=== PATIENT | female | born 1955 | race Caucasian/White ===

== ENCOUNTER 2019-10-20 19:25 | Emergency (ER) | payer OTHER, MEDICAID ==
[~2019-10-20] VITALS: Ht 167.6 cm; Wt 88.9 kg
[2019-10-20 19:50] VITALS: BP 114/77
[2019-10-20 21:43] LABS: Basophils # (auto) 0 uL; Basophils % (auto) 0.7 % (0.0-2.0); Eosinophils # (auto) 0.1 uL; Eosinophils % (auto) 1.4 % (0.0-7.0); Hematocrit 35.5 % (36.0-46.0); Hemoglobin 12.9 g/dL (12.2-16.2); Lymphocytes # (auto) 0.6 uL; Lymphocytes % (auto) 8.2 % (10.0-50.0); Mean Corpuscular Hemoglobin 30.5 pg (28.0-32.0); Mean Corpuscular Hgb Conc. 36.5 g/dL (32.0-36.0); Mean Corpuscular Volume 83.6 fL (80.0-100.0); Monocytes # (auto) 0.7 uL; Monocytes % (auto) 9.1 % (0.0-12.0); Neutrophils % (auto) 80.6 % (37.0-80.0); Nucleated Red Blood Cells % 0.1 %; Platelet Count (auto) 198 10^3/uL (140-450); Red Blood Cells 4.24 10^6/uL (4.0-5.20); Red Cell Distribution Width 17.7 % (11.8-14.3); White Blood Cell 7.4 10^3/uL (4.4-10.8)
[2019-10-20 21:59] LABS: Albumin 4.7 g/dL (3.4-5.0); Anion Gap 8 (5-15); Blood Urea Nitrogen 23 mg/dL (7-18); Calcium 9.7 mg/dL (8.5-10.1); Carbon Dioxide 27 mmol/L (21-32); Chloride 98 mmol/L (98-107); Glucose 107 mg/dL (74-106); Potassium 3.5 mmol/L (3.5-5.1); Sodium 133 mmol/L (136-145)
[2019-10-20 22:05] LABS: Alanine Aminotransferase 29 U/L (13-56); Alkaline Phosphatase 85 U/L (45-117); Aspartate Aminotransferase 23 U/L (15-37); BUN/Creatinine Ratio 24.2; GFR African American 76 mL/min; GFR Non-African American 63 mL/min; Total Protein 7.7 g/dL (6.4-8.2)
== END 2019-10-21 00:03 | disposition left against medical advice (07) ==
LOC: ER 19:31
DX: R07.89 Other chest pain (principal); Z53.21 Procedure and treatment not carried out due to patient leaving prior to being seen by health care provider
CPT/HCPCS: 36415; 71046; 80053; 84484; 85025; 93005

== ENCOUNTER 2023-09-28 07:41 | Inpatient (IN) | payer OTHER, MEDICAID ==
[~2023-09-28] VITALS: Ht 167.6 cm; Wt 96.0 kg
[2023-09-28 08:15] LABS: Basophils # (auto) 0 10 ^3/uL (0-0.2); Basophils % (auto) 0.2 % (0.0-2.0); Eosinophils # (auto) 0 10 ^3/uL (0-0.8); Eosinophils % (auto) 0.6 % (0.0-7.0); Hematocrit 36.6 % (36.0-46.0); Hemoglobin 12.7 g/dL (12.2-16.2); Lymphocytes # (auto) 0.7 10 ^3/uL (0.4-5.4); Lymphocytes % (auto) 8.7 % (10.0-50.0); Mean Corpuscular Hemoglobin 30.1 pg (28.0-32.0); Mean Corpuscular Hgb Conc. 34.7 g/dL (32.0-36.0); Mean Corpuscular Volume 86.8 fL (80.0-100.0); Monocytes # (auto) 0.3 10 ^3/uL (0-1.3); Monocytes % (auto) 4.1 % (0.0-12.0); Neutrophils # (auto) 6.7 10 ^3/uL (1.6-8.6); Neutrophils % (auto) 86.4 % (37.0-80.0); Nucleated Red Blood Cells % 0.1 %; Red Blood Cells 4.22 10^6/uL (4.0-5.20); Red Cell Distribution Width 16.3 % (11.8-14.3); White Blood Cell 7.7 10^3/uL (4.4-10.8)
[2023-09-28 08:23] LABS: INR 1.05 (0.9-1.15); Partial Thromboplastin Time 29.1 SEC (24.5-34.5)
[2023-09-28 08:35] LABS: Alanine Aminotransferase 20 U/L (7-40); Albumin 4.3 g/dL (3.2-4.8); Alkaline Phosphatase 84 U/L (46-116); Anion Gap 11 (5-15); Aspartate Aminotransferase 25 U/L (13-40); Blood Urea Nitrogen 15 mg/dL (9-23); Calcium 9.6 mg/dL (8.7-10.4); Carbon Dioxide 23 mmol/L (20-30); Chloride 107 mmol/L (98-107); Glucose 111 mg/dL (74-106); Magnesium 1.8 mg/dL (1.6-2.6); Sodium 141 mmol/L (136-145)
[2023-09-28 08:36] LABS: Total Protein 6.7 g/dL (5.7-8.2)
[2023-09-28 08:53] LABS: Bilirubin, Total 1.8 mg/dL (0.2-1.0)
[2023-09-28] MEDS ORDERED: FUROSEMIDE 40 MG/4 ML VIAL IV ONE (13:30)
[2023-09-28] MEDS ORDERED: DexAMETHasone SOD PHOS 10MG/1ML VIAL INJ IV ONE (13:30)
[2023-09-28] MEDS ORDERED: HYDROcodone-ACET 5/325MG TAB PO PRN (14:15)
[2023-09-28] MEDS ORDERED: NITROGLYCERIN 0.4 MG SL TAB SL PRN (14:15)
[2023-09-28] MEDS ORDERED: DOCUSATE SOD 100 MG CAP PO PRN (14:15)
[2023-09-28] MEDS ORDERED: MORPHINE SULFATE INJ 2 MG/ml SYRG IV PRN (14:15)
[2023-09-28] MEDS ORDERED: ONDANSETRON HCL 4 MG/2 ML VIAL IV PRN (14:15)
[2023-09-28] MEDS ORDERED: PROMETHAZINE HCL 6.25 MG/5 ML ORAL SYRUP PO PRN (15:15)
[2023-09-28] MEDS ORDERED: ATOR40TA52 PO (15:25)
[2023-09-28] MEDS ORDERED: BACL10TA PO (15:25)
[2023-09-28] MEDS ORDERED: LOS25T PO (15:25)
[2023-09-28] MEDS ORDERED: ACETAMINOPHEN 500 MG TAB PO ONE (15:45)
[2023-09-28 18:00] VITALS: PULSE 86; RESP 18; O2SAT 98
[2023-09-28] MEDS: IPRATROPIUM BROM 0.5 MG/2.5ML INH SOL NEB SCH (18:00)
[2023-09-28] MEDS: LEVALBUTEROL HCL 1.25 MG/3 ML NEB NEB SCH (18:00)
[2023-09-28 18:10] VITALS: PULSE 88; RESP 18; O2SAT 100
[2023-09-28 18:23] LABS: COVID19 ANTIGEN SOFIA FIA NEGATIVE (NEGATIVE)
[2023-09-28 18:24] LABS: Rapid Influenza A Negative (Negative); Rapid Influenza B Negative (Negative)
[2023-09-28] MEDS: methylPREDNISolone SOD SUCC 40 MG/ML VL IV SCH (23:41)
[2023-09-29] VITALS (18 sets, daily range): BP systolic 140–190; BP diastolic 68–93; PULSE 66–122; RESP 16–22; TEMP 97.5–98.4; O2SAT 94–100
[2023-09-29] MEDS: LEVALBUTEROL HCL 1.25 MG/3 ML NEB NEB SCH ×5 (00:57→23:03)
[2023-09-29] MEDS: hydrALAZINE HCL 20 MG/ML VL IV PRN ×3 (01:13→19:15)
[2023-09-29] MEDS: ACETAMINOPHEN 325 MG TAB PO PRN ×4 (01:14→19:08)
[2023-09-29] MEDS ORDERED: ALBUTEROL SULF 2.5 MG/0.5ML(0.5%) NEB SOLN NEB PRN (01:30)
[2023-09-29] MEDS ORDERED: IPRATROPIUM BROM 0.5 MG/2.5ML INH SOL NEB PRN (01:30)
[2023-09-29] MEDS: methylPREDNISolone SOD SUCC 40 MG/ML VL IV SCH ×3 (05:19→20:59)
[2023-09-29] MEDS: IPRATROPIUM BROM 0.5 MG/2.5ML INH SOL NEB SCH ×3 (06:13→22:53)
[2023-09-29 06:46] LABS: Basophils # (auto) 0 10 ^3/uL (0-0.2); Basophils % (auto) 0.1 % (0.0-2.0); Eosinophils # (auto) 0 10 ^3/uL (0-0.8); Hematocrit 32.3 % (36.0-46.0); Lymphocytes # (auto) 0.2 10 ^3/uL (0.4-5.4); Lymphocytes % (auto) 5.6 % (10.0-50.0); Mean Corpuscular Hemoglobin 29.3 pg (28.0-32.0); Mean Corpuscular Volume 86.3 fL (80.0-100.0); Monocytes # (auto) 0 10 ^3/uL (0-1.3); Monocytes % (auto) 1.3 % (0.0-12.0); Neutrophils # (auto) 3.5 10 ^3/uL (1.6-8.6); Nucleated Red Blood Cells % 0.1 %; Red Blood Cells 3.74 10^6/uL (4.0-5.20); Red Cell Distribution Width 15.6 % (11.8-14.3); White Blood Cell 3.7 10^3/uL (4.4-10.8)
[2023-09-29] MEDS: BREO ELIPTA PO SCH (07:00)
[2023-09-29] MEDS: SPIRIVA 1.25 MCG PO SCH (07:00)
[2023-09-29 07:01] LABS: Alanine Aminotransferase 12 U/L (7-40); Albumin 4.1 g/dL (3.2-4.8); Alkaline Phosphatase 70 U/L (46-116); Anion Gap 12 (5-15); Aspartate Aminotransferase 22 U/L (13-40); BUN/Creatinine Ratio 18.7 (10.0-20.0); Bilirubin, Total 1.4 mg/dL (0.2-1.0); Blood Urea Nitrogen 14 mg/dL (9-23); Calcium 9.2 mg/dL (8.7-10.4); Carbon Dioxide 20 mmol/L (20-30); Chloride 106 mmol/L (98-107); Glucose 172 mg/dL (74-106); Potassium 3.7 mmol/L (3.5-5.1); Sodium 138 mmol/L (136-145); Total Protein 6.7 g/dL (5.7-8.2)
[2023-09-29 09:13] LABS: Hepatitis B Surface Antigen Negative (Negative)
[2023-09-29 09:35] LABS: Hepatitis C Antibody Negative (Negative)
[2023-09-29] MEDS: PANTOPRAZOLE 40 MG TAB PO SCH (09:38)
[2023-09-29] MEDS: levoFLOXacin 750MG 150 ML IV SCH (09:39)
[2023-09-29] MEDS ORDERED: FUROSEMIDE 20 MG/2 ML VIAL IV SCH (10:00)
[2023-09-29] MEDS ORDERED: ENOXAPARIN SOD 40 MG/0.4 ML SYRINGE SC SCH (10:00)
[2023-09-29] MEDS ORDERED: ASPirin 81 mg TAB PO SCH (10:00)
[2023-09-29] MEDS ORDERED: LOSARTAN POTASSIUM 25 MG TAB PO SCH (10:00)
[2023-09-29] MEDS: PROMETHAZINE HCL 25 MG/ML 1ML IV PRN ×2 (11:23→20:59)
[2023-09-29] MEDS: LORazepam 2MG/ML-1ML VIAL IV PRN ×2 (12:38→23:34)
[2023-09-29] MEDS ORDERED: DOXY100C4 PO (15:45)
[2023-09-29] MEDS ORDERED: AUG875T PO (15:45)
[2023-09-29] MEDS ORDERED: PROM25TA10 PO (16:05)
[2023-09-29] MEDS ORDERED: BUDE0.253 INH (16:05)
[2023-09-29] MEDS ORDERED: FLUT1INH6 INH (16:05)
[2023-09-29] MEDS ORDERED: PRED10TA PO (16:05)
[2023-09-29] MEDS ORDERED: FAMO-12 PO (16:09)
[2023-09-29] MEDS: FUROSEMIDE 20 MG/2 ML VIAL IV SCH (19:09)
[2023-09-29] MEDS: BACLOFEN 10 MG TAB PO SCH (20:58)
[2023-09-29] MEDS: ATORVASTATIN 20 MG TAB PO SCH (20:58)
[2023-09-30] VITALS (14 sets, daily range): BP systolic 131–154; BP diastolic 69–80; PULSE 80–102; RESP 14–20; TEMP 97.5–98.4; O2SAT 93–100
[2023-09-30] MEDS: ACETAMINOPHEN 325 MG TAB PO PRN ×2 (03:51→14:06)
[2023-09-30] MEDS: FUROSEMIDE 20 MG/2 ML VIAL IV SCH ×2 (05:04→18:16)
[2023-09-30] MEDS: methylPREDNISolone SOD SUCC 40 MG/ML VL IV SCH ×2 (05:04→18:15)
[2023-09-30 05:57] LABS: Basophils # (auto) 0 10 ^3/uL (0-0.2); Basophils % (auto) 0.3 % (0.0-2.0); Eosinophils # (auto) 0 10 ^3/uL (0-0.8); Eosinophils % (auto) 0.4 % (0.0-7.0); Hematocrit 32.7 % (36.0-46.0); Hemoglobin 11.6 g/dL (12.2-16.2); Lymphocytes # (auto) 0.2 10 ^3/uL (0.4-5.4); Lymphocytes % (auto) 2.3 % (10.0-50.0); Mean Corpuscular Hemoglobin 31.4 pg (28.0-32.0); Mean Corpuscular Hgb Conc. 35.7 g/dL (32.0-36.0); Mean Corpuscular Volume 87.9 fL (80.0-100.0); Monocytes # (auto) 0.4 10 ^3/uL (0-1.3); Monocytes % (auto) 3.7 % (0.0-12.0); Neutrophils % (auto) 93.3 % (37.0-80.0); Red Blood Cells 3.72 10^6/uL (4.0-5.20); Red Cell Distribution Width 16.2 % (11.8-14.3); White Blood Cell 10.7 10^3/uL (4.4-10.8)
[2023-09-30] MEDS: LEVALBUTEROL HCL 1.25 MG/3 ML NEB NEB SCH ×3 (06:00→17:42)
[2023-09-30] MEDS: IPRATROPIUM BROM 0.5 MG/2.5ML INH SOL NEB SCH ×3 (06:00→17:42)
[2023-09-30 06:19] LABS: Alanine Aminotransferase 11 U/L (7-40); Alkaline Phosphatase 63 U/L (46-116); Anion Gap 11 (5-15); Aspartate Aminotransferase 22 U/L (13-40); Bilirubin, Total 0.9 mg/dL (0.2-1.0); Calcium 9.7 mg/dL (8.5-10.1); Carbon Dioxide 25 mmol/L (20-30); Chloride 104 mmol/L (98-107); Glucose 145 mg/dL (74-106); Potassium 3.5 mmol/L (3.5-5.1); Sodium 140 mmol/L (136-145); Total Protein 6.5 g/dL (5.7-8.2)
[2023-09-30 06:39] LABS: Blood Urea Nitrogen 21 mg/dL (9-23)
[2023-09-30] MEDS: SPIRIVA 1.25 MCG PO SCH (07:00)
[2023-09-30] MEDS: BREO ELIPTA PO SCH (07:00)
[2023-09-30] MEDS: PROMETHAZINE HCL 25 MG/ML 1ML IV PRN ×2 (07:08→19:32)
[2023-09-30 07:24] LABS: BUN/Creatinine Ratio 20.8 (10.0-20.0)
[2023-09-30] MEDS: LOSARTAN POTASSIUM 50 MG TAB PO SCH (10:00)
[2023-09-30] MEDS: LORazepam 2MG/ML-1ML VIAL IV PRN ×2 (10:07→22:39)
[2023-09-30] MEDS: PANTOPRAZOLE 40 MG TAB PO SCH (10:07)
[2023-09-30] MEDS: levoFLOXacin 750MG 150 ML IV SCH (10:10)
[2023-09-30] MEDS ORDERED: IBUPROFEN 600 MG TAB PO ONE (16:30)
[2023-09-30] MEDS: BACLOFEN 10 MG TAB PO SCH (21:29)
[2023-09-30] MEDS: ATORVASTATIN 20 MG TAB PO SCH (21:29)
[2023-10-01] VITALS (11 sets, daily range): BP systolic 149–150; BP diastolic 82–83; PULSE 62–94; RESP 14–18; TEMP 36.6; O2SAT 93–100
[2023-10-01] MEDS: LEVALBUTEROL HCL 1.25 MG/3 ML NEB NEB SCH ×3 (01:18→12:06)
[2023-10-01] MEDS: FUROSEMIDE 20 MG/2 ML VIAL IV SCH ×2 (05:06→18:00)
[2023-10-01] MEDS: methylPREDNISolone SOD SUCC 40 MG/ML VL IV SCH ×2 (05:06→18:00)
[2023-10-01] MEDS: BREO ELIPTA PO SCH (06:06)
[2023-10-01] MEDS: SPIRIVA 1.25 MCG PO SCH (06:06)
[2023-10-01] MEDS: PROMETHAZINE HCL 25 MG/ML 1ML IV PRN (06:31)
[2023-10-01 06:37] LABS: Basophils # (auto) 0 10 ^3/uL (0-0.2); Basophils % (auto) 0.1 % (0.0-2.0); Eosinophils # (auto) 0 10 ^3/uL (0-0.8); Hematocrit 33.1 % (36.0-46.0); Hemoglobin 11.2 g/dL (12.2-16.2); Lymphocytes # (auto) 0.3 10 ^3/uL (0.4-5.4); Lymphocytes % (auto) 3.3 % (10.0-50.0); Mean Corpuscular Hemoglobin 30.6 pg (28.0-32.0); Mean Corpuscular Volume 90.1 fL (80.0-100.0); Monocytes # (auto) 0.5 10 ^3/uL (0-1.3); Monocytes % (auto) 5.9 % (0.0-12.0); Neutrophils # (auto) 7.3 10 ^3/uL (1.6-8.6); Neutrophils % (auto) 90.7 % (37.0-80.0); Red Blood Cells 3.67 10^6/uL (4.0-5.20); Red Cell Distribution Width 16.4 % (11.8-14.3); White Blood Cell 8.1 10^3/uL (4.4-10.8)
[2023-10-01 06:44] LABS: Chloride 105 mmol/L (98-107); Potassium 3.8 mmol/L (3.5-5.1); Sodium 140 mmol/L (136-145)
[2023-10-01 06:45] LABS: Anion Gap 10 (5-15); Calcium 9.3 mg/dL (8.5-10.1); Carbon Dioxide 25 mmol/L (20-30)
[2023-10-01 06:50] LABS: Blood Urea Nitrogen 26 mg/dL (9-23); Glucose 158 mg/dL (74-106)
[2023-10-01] MEDS: IPRATROPIUM BROM 0.5 MG/2.5ML INH SOL NEB SCH ×2 (07:11→11:55)
[2023-10-01] MEDS: PANTOPRAZOLE 40 MG TAB PO SCH (09:19)
[2023-10-01] MEDS: levoFLOXacin 750MG 150 ML IV SCH (09:19)
[2023-10-01] MEDS: LOSARTAN POTASSIUM 50 MG TAB PO SCH (09:19)
[2023-10-01] MEDS ORDERED: METH4PAK PO ×2 (10:07)
[2023-10-01] MEDS ORDERED: AZIT-81 PO ×2 (10:07)
[2023-10-01] MEDS ORDERED: FURO1TAB31 PO (10:08)
[2023-10-01] MEDS: ACETAMINOPHEN 325 MG TAB PO PRN (12:10)
== END 2023-10-01 18:00 | disposition home health service (06) | DRG 177 ==
LOC: ER 07:41 → TELE 14:07 → TELE-CENTR 23:05
PROVIDERS: ADMIT Internal Medicine; ATTEND Internal Medicine
DX: J15.69 Pneumonia due to other Gram-negative bacteria (principal); I50.33 Acute on chronic diastolic (congestive) heart failure; J96.21 Acute and chronic respiratory failure with hypoxia; I16.1 Hypertensive emergency; J44.0 Chronic obstructive pulmonary disease with (acute) lower respiratory infection; J44.1 Chronic obstructive pulmonary disease with (acute) exacerbation; J15.9 Unspecified bacterial pneumonia; I11.0 Hypertensive heart disease with heart failure; Z20.822 Contact with and (suspected) exposure to COVID-19; F41.9 Anxiety disorder, unspecified; F32.A Depression, unspecified; D86.9 Sarcoidosis, unspecified; E66.9 Obesity, unspecified; E78.5 Hyperlipidemia, unspecified; R45.0 Nervousness; Z68.34 Body mass index [BMI] 34.0-34.9, adult; Z80.0 Family history of malignant neoplasm of digestive organs; Z80.3 Family history of malignant neoplasm of breast; Z86.73 Personal history of transient ischemic attack (TIA), and cerebral infarction without residual deficits; Z90.710 Acquired absence of both cervix and uterus; Z90.49 Acquired absence of other specified parts of digestive tract; Z88.5 Allergy status to narcotic agent; Z88.8 Allergy status to other drugs, medicaments and biological substances
CPT/HCPCS: 36415; 71045; 71275; 80048; 80053; 83735; 83880; 84439; 84443; 84484; 85025; 85379; 85610; 85730; 86803; 87040; 87070; 87077; 87081; 87186; 87205; 87340; 87426; 87804; 93005; 93306; 94640; 96374; 96375; 97110; 97116; 97163; G0378; J1100; J1956

== ENCOUNTER 2023-10-07 06:41 | Inpatient (IN) | payer OTHER, MEDICAID ==
[~2023-10-07] VITALS: Ht 167.6 cm; Wt 94.2 kg
[2023-10-07] VITALS (15 sets, daily range): BP systolic 91–112; BP diastolic 47–62; PULSE 77–130; RESP 16–22; TEMP 98.1–99.3; O2SAT 93–99
[~2023-10-07 06:41] MED LIST: ATOR40TA52 PO; AZIT-81 PO; BACL10TA PO; BUDE0.253 INH; FAMO-12 PO; FLUT1INH6 INH; FURO1TAB31 PO; LOS25T PO; METH4PAK PO; PROM25TA10 PO
[2023-10-07] MEDS ORDERED: ASPirin 81 mg TAB PO ONE (07:00)
[2023-10-07] MEDS ORDERED: ADENOSINE 6 MG/2 ML INJ IV ONE (07:00)
[2023-10-07] MEDS ORDERED: SODIUM CHLORIDE 0.9% 1,000 ML IVB ONE (07:00)
[2023-10-07 07:13] LABS: Hematocrit 32.8 % (36.0-46.0); Hemoglobin 11.6 g/dL (12.2-16.2); Mean Corpuscular Hemoglobin 29.8 pg (28.0-32.0); Mean Corpuscular Hgb Conc. 35.3 g/dL (32.0-36.0); Mean Corpuscular Volume 84.5 fL (80.0-100.0); Red Blood Cells 3.88 10^6/uL (4.0-5.20); Red Cell Distribution Width 15.7 % (11.8-14.3); White Blood Cell 10.1 10^3/uL (4.4-10.8)
[2023-10-07 07:18] LABS: Band Neutrophils % (manual) 0; Basophils % (manual) 0 (0.0-2.0); Blast Cells 0; Eosinophils % (manual) 0 (0-7); Metamyelocytes % 0; Promyelocytes % 0; Reactive Lymphocytes 0
[2023-10-07 07:32] LABS: Chloride 100 mmol/L (98-107); Potassium 3.5 mmol/L (3.5-5.1)
[2023-10-07 07:33] LABS: Anion Gap 10 (5-15); Carbon Dioxide 24 mmol/L (20-30)
[2023-10-07 07:34] LABS: Calcium 8.6 mg/dL (8.7-10.4)
[2023-10-07 07:38] LABS: Glucose 164 mg/dL (74-106)
[2023-10-07 07:39] LABS: BUN/Creatinine Ratio 41.4 (10.0-20.0); Blood Urea Nitrogen 36 mg/dL (9-23); Magnesium 1.6 mg/dL (1.6-2.6)
[2023-10-07 07:41] LABS: Sodium 134 mmol/L (136-145)
[2023-10-07] MEDS ORDERED: METOCLOPRAMIDE HCL 5MG/ml INJ 2ml VIAL IV ONE (08:00)
[2023-10-07] MEDS ORDERED: MORPHINE SULFATE 4 MG/ML SYR/VIAL IV ONE (08:00)
[2023-10-07 08:30] LABS: Lymphocytes % (manual) 6 (10.0-50.0); Monocytes % (manual) 15 (0-12); Myelocytes % 2
[2023-10-07 08:31] LABS: Platelet Estimate Decreased
[2023-10-07] MEDS ORDERED: SODIUM CHLORIDE 0.9% 1,000 ML IV ONE (09:15)
[2023-10-07] MEDS ORDERED: NITROGLYCERIN 0.4 MG SL TAB SL PRN (09:15)
[2023-10-07] MEDS ORDERED: MORPHINE SULFATE INJ 2 MG/ml SYRG IV PRN ×2 (09:15→09:34)
[2023-10-07] MEDS ORDERED: ONDANSETRON HCL 4 MG/2 ML VIAL IV PRN (09:15)
[2023-10-07] MEDS ORDERED: PANTOPRAZOLE 40 MG/10 ML VIAL INJ IV ONE (09:30)
[2023-10-07 09:39] LABS: Triglycerides 209 mg/dL (< 150)
[2023-10-07 09:40] LABS: LDL Cholesterol 58 mg/dL (< 100)
[2023-10-07 09:41] LABS: Cholesterol 153 mg/dL (< 200); HDL Cholesterol 52 mg/dL (40-59)
[2023-10-07] MEDS: IPRATROPIUM BROM 0.5 MG/2.5ML INH SOL NEB SCH ×5 (09:53→22:28)
[2023-10-07] MEDS: ASPirin 81 mg TAB PO SCH (10:00)
[2023-10-07] MEDS: PANTOPRAZOLE 40 MG/10 ML VIAL INJ IV SCH (10:00)
[2023-10-07] MEDS: LOSARTAN POTASSIUM 25 MG TAB PO SCH (10:17)
[2023-10-07] MEDS: ACETAMINOPHEN 325 MG TAB PO PRN ×2 (10:18→18:05)
[2023-10-07] MEDS: LEVALBUTEROL HCL 1.25 MG/3 ML NEB NEB SCH ×5 (11:43→22:28)
[2023-10-07] MEDS ORDERED: LEVALBUTEROL HCL 1.25 MG/3 ML NEB NEB SCH (12:00)
[2023-10-07] MEDS ORDERED: ACETAMINOPHEN 325 MG TAB PO ONE (12:45)
[2023-10-07 13:17] LABS: Urine Bacteria NONE SEEN /hpf (None Seen); Urine Blood 2+ /uL (Negative); Urine Clarity Clear (Clear); Urine Color Yellow (Yellow); Urine Protein, UAD 2+ (Negative); Urine Specific Gravity 1.022 (1.001-1.035); Urine WBC 2 /hpf (0 - 5)
[2023-10-07] MEDS ORDERED: IPRATROPIUM BROM 0.5 MG/2.5ML INH SOL ONE ×2 (13:32→18:01)
[2023-10-07] MEDS ORDERED: ALBUTEROL SULF 2.5 MG/0.5ML(0.5%) NEB SOLN ONE (13:32)
[2023-10-07] MEDS ORDERED: LEVALBUTEROL HCL 1.25 MG/3 ML NEB ONE ×2 (13:37→18:00)
[2023-10-07] MEDS: BACLOFEN 10 MG TAB PO SCH ×2 (16:04→21:24)
[2023-10-07] MEDS ORDERED: PROMETHAZINE HCL 25 MG/ML 1ML IV ONE ×2 (17:30→20:45)
[2023-10-07] MEDS: CALCIUM W/VIT D (600MG/400IU) TAB PO SCH (18:06)
[2023-10-07] MEDS: ATORVASTATIN 20 MG TAB PO SCH (21:23)
[2023-10-08] VITALS (17 sets, daily range): BP systolic 111–149; BP diastolic 53–71; PULSE 106–125; RESP 16–25; TEMP 98.7–102.6; O2SAT 89–98
[2023-10-08] MEDS: ACETAMINOPHEN 325 MG TAB PO PRN ×2 (01:21→08:02)
[2023-10-08] MEDS ORDERED: traMADol HCL 50 MG TAB PO SCH (04:00)
[2023-10-08] MEDS: BACLOFEN 10 MG TAB PO SCH ×3 (05:14→22:00)
[2023-10-08] MEDS: LEVALBUTEROL HCL 1.25 MG/3 ML NEB NEB SCH ×5 (06:18→22:34)
[2023-10-08] MEDS: IPRATROPIUM BROM 0.5 MG/2.5ML INH SOL NEB SCH ×5 (06:18→22:33)
[2023-10-08] MEDS: PROMETHAZINE HCL 25 MG/ML 1ML IV PRN ×2 (10:00→16:48)
[2023-10-08] MEDS: LOSARTAN POTASSIUM 25 MG TAB PO SCH (10:02)
[2023-10-08] MEDS: ASPirin 81 mg TAB PO SCH (10:02)
[2023-10-08] MEDS: CALCIUM W/VIT D (600MG/400IU) TAB PO SCH ×2 (10:02→18:00)
[2023-10-08] MEDS: PANTOPRAZOLE 40 MG/10 ML VIAL INJ IV SCH ×2 (10:03→22:37)
[2023-10-08 10:34] LABS: Hematocrit 21.6 % (36.0-46.0); Hemoglobin 7.8 g/dL (12.2-16.2); Mean Corpuscular Hemoglobin 30.8 pg (28.0-32.0); Mean Corpuscular Hgb Conc. 36.2 g/dL (32.0-36.0); Mean Corpuscular Volume 84.9 fL (80.0-100.0); Red Blood Cells 2.54 10^6/uL (4.0-5.20); Red Cell Distribution Width 16.2 % (11.8-14.3); White Blood Cell 6.5 10^3/uL (4.4-10.8)
[2023-10-08 10:47] LABS: Band Neutrophils % (manual) 0; Basophils % (manual) 0 (0.0-2.0); Blast Cells 0; Eosinophils % (manual) 0 (0-7); Metamyelocytes % 0; Myelocytes % 0; Promyelocytes % 0; Reactive Lymphocytes 0
[2023-10-08 10:55] LABS: Alanine Aminotransferase 32 U/L (7-40); Albumin 3.5 g/dL (3.2-4.8); Alkaline Phosphatase 75 U/L (46-116); Anion Gap 8 (5-15); Aspartate Aminotransferase 44 U/L (13-40); BUN/Creatinine Ratio 36.8 (10.0-20.0); Bilirubin, Total 4.3 mg/dL (0.2-1.0); Blood Urea Nitrogen 32 mg/dL (9-23); Calcium 8.9 mg/dL (8.5-10.1); Carbon Dioxide 26 mmol/L (20-30); Chloride 101 mmol/L (98-107); Glucose 155 mg/dL (74-106); Potassium 3.5 mmol/L (3.5-5.1); Sodium 135 mmol/L (136-145); Total Protein 5.6 g/dL (5.7-8.2)
[2023-10-08 11:24] LABS: Rapid Influenza A Negative (Negative); Rapid Influenza B Negative (Negative)
[2023-10-08 13:43] LABS: Lymphocytes % (manual) 5 (10.0-50.0); Monocytes % (manual) 9 (0-12)
[2023-10-08 13:44] LABS: Platelet Estimate Decreased
[2023-10-08] MEDS: D5W/SOD CHL 0.45% 1,000 ML IV SCH ×2 (13:53→23:44)
[2023-10-08] MEDS: MAGNESIUM SULFATE 1GM/100ML 100 ML IV SCH ×2 (13:53→14:57)
[2023-10-08] MEDS ORDERED: cefTRIAXone 1GM/50ML D5W 50 ML IV ONE (14:15)
[2023-10-08] MEDS ORDERED: AZITHROMYCIN 500MG/ 250ML 250 ML IV ONE (14:15)
[2023-10-08] MEDS ORDERED: DOXYCYCLINE 100MG/250ML 250 ML IV SCH ×3 (14:30→22:00)
[2023-10-08] MEDS ORDERED: DOXYCYCLINE 100MG/250ML 250 ML IV ONE (15:30)
[2023-10-08] MEDS: MORPHINE SULFATE INJ 2 MG/ml SYRG IV PRN (15:33)
[2023-10-08 15:34] LABS: COVID19 ANTIGEN SOFIA FIA NEGATIVE (NEGATIVE)
[2023-10-08] MEDS: LORazepam 0.5 MG TAB PO PRN (16:48)
[2023-10-08] MEDS ORDERED: IBUPROFEN 600 MG TAB PO ONE (20:30)
[2023-10-08] MEDS ORDERED: IBUPROFEN 100MG/5ML ORAL SUSP 100 MG/5 ML UD GT ONE (21:00)
[2023-10-08] MEDS: ATORVASTATIN 20 MG TAB PO SCH (22:00)
[2023-10-08] MEDS: metroNIDAZOLE 500MG/100ML 100 ML IV SCH (23:43)
[2023-10-09] VITALS (42 sets, daily range): BP systolic 70–138; BP diastolic 19–70; PULSE 89–155; RESP 18–43; TEMP 98.8–105.1; O2SAT 91–100
[2023-10-09] MEDS: IPRATROPIUM BROM 0.5 MG/2.5ML INH SOL NEB SCH ×6 (01:56→22:47)
[2023-10-09] MEDS: LEVALBUTEROL HCL 1.25 MG/3 ML NEB NEB SCH ×6 (01:56→22:47)
[2023-10-09] MEDS: LORazepam 0.5 MG TAB PO PRN (05:16)
[2023-10-09] MEDS: metroNIDAZOLE 500MG/100ML 100 ML IV SCH ×2 (05:31→15:56)
[2023-10-09] MEDS: BACLOFEN 10 MG TAB PO SCH ×3 (05:31→22:00)
[2023-10-09 06:31] LABS: Hemoglobin 7.2 g/dL (12.2-16.2); Mean Corpuscular Volume 84.8 fL (80.0-100.0)
[2023-10-09 06:34] LABS: Hematocrit 20.3 % (36.0-46.0); Mean Corpuscular Hemoglobin 30.1 pg (28.0-32.0); Mean Corpuscular Hgb Conc. 35.5 g/dL (32.0-36.0); Red Blood Cells 2.39 10^6/uL (4.0-5.20); Red Cell Distribution Width 16.3 % (11.8-14.3)
[2023-10-09 06:39] LABS: INR 1.13 (0.9-1.15); Prothrombin Time 11.8 sec (9.3-11.8)
[2023-10-09 06:45] LABS: Alanine Aminotransferase 44 U/L (7-40); Alkaline Phosphatase 85 U/L (46-116); Anion Gap 11 (5-15); BUN/Creatinine Ratio 33.1 (10.0-20.0); Blood Urea Nitrogen 39 mg/dL (9-23); Calcium 8.6 mg/dL (8.7-10.4); Carbon Dioxide 24 mmol/L (20-30); Chloride 100 mmol/L (98-107); Glucose 131 mg/dL (74-106); Lipase 309 U/L (12-53); Potassium 3.3 mmol/L (3.5-5.1); Sodium 135 mmol/L (136-145)
[2023-10-09 06:46] LABS: Albumin 3.3 g/dL (3.2-4.8); Amylase 215 U/L (30-118); Aspartate Aminotransferase 64 U/L (13-40); Bilirubin, Total 2.6 mg/dL (0.2-1.0); Total Protein 5.4 g/dL (5.7-8.2)
[2023-10-09 06:55] LABS: Band Neutrophils % (manual) 0; Basophils % (manual) 0 (0.0-2.0); Blast Cells 0; Eosinophils % (manual) 0 (0-7); Metamyelocytes % 0; Myelocytes % 0; Promyelocytes % 0; Reactive Lymphocytes 0
[2023-10-09] MEDS ORDERED: cefTRIAXone 1GM/50ML D5W 50 ML IV SCH (09:00)
[2023-10-09] MEDS: MORPHINE SULFATE INJ 2 MG/ml SYRG IV PRN (09:04)
[2023-10-09] MEDS ORDERED: IBUPROFEN 100MG/5ML ORAL SUSP 100 MG/5 ML UD GT PRN (09:15)
[2023-10-09] MEDS: PROMETHAZINE HCL 25 MG/ML 1ML IV PRN (09:26)
[2023-10-09] MEDS: CALCIUM W/VIT D (600MG/400IU) TAB PO SCH ×3 (09:33→18:00)
[2023-10-09] MEDS: PANTOPRAZOLE 40 MG/10 ML VIAL INJ IV SCH ×2 (09:33→22:00)
[2023-10-09] MEDS ORDERED: AZITHROMYCIN 500MG/ 250ML 250 ML IV SCH (10:00)
[2023-10-09] MEDS ORDERED: ACETAMINOPHEN 325 MG TAB PO PRN (10:00)
[2023-10-09] MEDS: LOSARTAN POTASSIUM 25 MG TAB PO SCH ×2 (10:08→10:57)
[2023-10-09 10:14] LABS: Hepatitis B Core Total AB Negative (Negative)
[2023-10-09] MEDS ORDERED: LORazepam 2MG/ML-1ML VIAL IV ONE ×2 (10:15)
[2023-10-09 11:39] LABS: Hepatitis A Ab IgM Negative; Hepatitis A Total Antibody Positive (Negative); Hepatitis B Core IgM Negative; Hepatitis B Surface Antibody Negative (Negative); Hepatitis B Surface Antigen Negative (Negative)
[2023-10-09 11:40] LABS: Hepatitis C Antibody Negative (Negative)
[2023-10-09] MEDS: DOXYCYCLINE 100MG/250ML 250 ML IV SCH ×2 (12:09→22:00)
[2023-10-09 12:19] LABS: Lymphocytes % (manual) 3 (10.0-50.0); Monocytes % (manual) 9 (0-12)
[2023-10-09 12:20] LABS: Platelet Estimate Decreased
[2023-10-09] MEDS ORDERED: SODIUM CHLORIDE 0.9% 1,000 ML IV ONE (14:30)
[2023-10-09 16:43] LABS: Lactic Acid w/Reflex 3.1 mmol/L (0.4-2.0)
[2023-10-09] MEDS: D5W/SOD CHL 0.45% 1,000 ML IV SCH ×2 (17:22→19:00)
[2023-10-09] MEDS ORDERED: LORazepam 2MG/ML-1ML VIAL IV PRN ×2 (18:15→20:30)
[2023-10-09] MEDS ORDERED: IPRATROPIUM BROM 0.5 MG/2.5ML INH SOL ONE (18:59)
[2023-10-09] MEDS ORDERED: ALBUTEROL SULF 2.5 MG/0.5ML(0.5%) NEB SOLN ONE (18:59)
[2023-10-09] MEDS ORDERED: FUROSEMIDE 40 MG/4 ML VIAL ONE (19:02)
[2023-10-09] MEDS ORDERED: LEVALBUTEROL HCL 1.25 MG/3 ML NEB NEB STA (19:13)
[2023-10-09] MEDS ORDERED: dilTIAZem 125mg/125ml BAG KIT 100 ML IV SCH (19:15)
[2023-10-09] MEDS ORDERED: IPRATROPIUM BROM 0.5 MG/2.5ML INH SOL NEB ONE (19:15)
[2023-10-09] MEDS ORDERED: FUROSEMIDE 100 MG/10ML VIAL IV ONE (19:15)
[2023-10-09] MEDS ORDERED: dilTIAZem 25 MG/5 ML VIAL IV ONE ×3 (19:15→19:30)
[2023-10-09 19:21] LABS: Base Excess -11.5 mmol/L (-2.0-2.0)
[2023-10-09] MEDS ORDERED: dilTIAZem 125mg/125ml BAG KIT 125 ML IV SCH (19:30)
[2023-10-09] MEDS ORDERED: ACETAMINOPHEN 650 MG RECT SUPP PR ONE (20:08)
[2023-10-09] MEDS ORDERED: CEFEPIME 2GM/50ML NS 50 ML IV STA (20:11)
[2023-10-09 20:22] LABS: Basophils # (auto) 0.1 10 ^3/uL (0-0.2); Eosinophils # (auto) 0 10 ^3/uL (0-0.8); Hematocrit 20.6 % (36.0-46.0)
[2023-10-09 20:24] LABS: Basophils % (auto) 0.5 % (0.0-2.0); Lymphocytes # (auto) 1.6 10 ^3/uL (0.4-5.4); Lymphocytes % (auto) 7.3 % (10.0-50.0); Mean Corpuscular Hgb Conc. 33.5 g/dL (32.0-36.0); Mean Corpuscular Volume 86.6 fL (80.0-100.0); Monocytes # (auto) 2.8 10 ^3/uL (0-1.3); Neutrophils # (auto) 17.1 10 ^3/uL (1.6-8.6); Neutrophils % (auto) 79.2 % (37.0-80.0); Nucleated Red Blood Cells % 0.7 %; Red Blood Cells 2.38 10^6/uL (4.0-5.20); Red Cell Distribution Width 16.7 % (11.8-14.3); White Blood Cell 21.6 10^3/uL (4.4-10.8)
[2023-10-09] MEDS ORDERED: CEFEPIME 2GM/50ML NS 50 ML IV ONE (20:25)
[2023-10-09] MEDS ORDERED: AMIODARONE BOLUS KIT 100 ML IV ONE (20:30)
[2023-10-09] MEDS: HEPARIN SODIUM (PORCINE) 5000 UNITS/ML 1ML VIAL SC SCH (20:30)
[2023-10-09 20:43] LABS: Alanine Aminotransferase 70 U/L (7-40); Albumin 3.1 g/dL (3.2-4.8); Alkaline Phosphatase 114 U/L (46-116); Amylase 159 U/L (30-118); Anion Gap 16 (5-15); Aspartate Aminotransferase 140 U/L (13-40); BUN/Creatinine Ratio 28.1 (10.0-20.0); Bilirubin, Total 2.4 mg/dL (0.2-1.0); Calcium 8.4 mg/dL (8.5-10.1); Carbon Dioxide 19 mmol/L (20-30); Chloride 104 mmol/L (98-107); Glucose 130 mg/dL (74-106); Phosphorus 4.5 mg/dL (2.4-5.1); Potassium 3.7 mmol/L (3.5-5.1); Sodium 139 mmol/L (136-145); Total Protein 4.9 g/dL (5.7-8.2)
[2023-10-09] MEDS ORDERED: AMIODARONE 450mg/250ml AE 250 ML IV SCH (20:45)
[2023-10-09] MEDS ORDERED: SODIUM BICARBONATE 8.4 % INJ 50ML VIAL IV ONE (20:45)
[2023-10-09 20:49] LABS: Hemoglobin 6.9 g/dL (12.2-16.2)
[2023-10-09 20:55] LABS: Blood Urea Nitrogen 52 mg/dL (9-23)
[2023-10-09 21:00] LABS: Lactic Acid w/Reflex 7.2 mmol/L (0.4-2.0)
[2023-10-09] MEDS ORDERED: HYDROCORTISONE SOD SUCC 100 MG/2ML INJ VIAL IV ONE (21:15)
[2023-10-09] MEDS ORDERED: ACETAMINOPHEN IV 1000 MG/100ML (10MG/ML) IV ONE (21:15)
[2023-10-09 21:32] LABS: INR 1.28 (0.9-1.15); Prothrombin Time 13.2 sec (9.3-11.8)
[2023-10-09] MEDS: ATORVASTATIN 20 MG TAB PO SCH (22:00)
[2023-10-09] MEDS: NOREPINEPHRINE 8 MG/250ML KIT 250 ML IV SCH (22:49)
[2023-10-10] VITALS (110 sets, daily range): BP systolic 75–164; BP diastolic 10–86; PULSE 45–133; RESP 13–44; TEMP 97.9–103.3; O2SAT 70–100
[2023-10-10 00:21] LABS: Base Excess -3.2 mmol/L (-2.0-2.0)
[2023-10-10] MEDS ORDERED: ACETAMINOPHEN 650 MG RECT SUPP PR PRN (01:15)
[2023-10-10] MEDS: metroNIDAZOLE 500MG/100ML 100 ML IV SCH ×3 (01:19→13:11)
[2023-10-10] MEDS: LEVALBUTEROL HCL 1.25 MG/3 ML NEB NEB SCH ×6 (01:58→22:32)
[2023-10-10] MEDS: IPRATROPIUM BROM 0.5 MG/2.5ML INH SOL NEB SCH ×6 (01:58→22:32)
[2023-10-10] MEDS ORDERED: AMIODARONE 450mg/250ml AE 250 ML IV SCH (02:45)
[2023-10-10] MEDS: HEPARIN SODIUM (PORCINE) 5000 UNITS/ML 1ML VIAL SC SCH ×3 (03:57→20:30)
[2023-10-10] MEDS: BACLOFEN 10 MG TAB PO SCH ×3 (03:57→21:54)
[2023-10-10] MEDS: D5W/SOD CHL 0.45% 1,000 ML IV SCH ×2 (05:00→14:01)
[2023-10-10 07:00] LABS: Hemoglobin 8.1 g/dL (12.2-16.2)
[2023-10-10 07:03] LABS: Hematocrit 23.2 % (36.0-46.0); Mean Corpuscular Hgb Conc. 34.8 g/dL (32.0-36.0); Mean Corpuscular Volume 86.3 fL (80.0-100.0); Red Blood Cells 2.69 10^6/uL (4.0-5.20); Red Cell Distribution Width 16.4 % (11.8-14.3); White Blood Cell 12.5 10^3/uL (4.4-10.8)
[2023-10-10 07:10] LABS: Basophils % (manual) 0 (0.0-2.0); Eosinophils % (manual) 0 (0-7); Metamyelocytes % 0; Myelocytes % 0; Promyelocytes % 0; Reactive Lymphocytes 0
[2023-10-10 07:23] LABS: Lactic Acid w/Reflex 3.9 mmol/L (0.4-2.0)
[2023-10-10 07:28] LABS: Alanine Aminotransferase 65 U/L (7-40); Alkaline Phosphatase 106 U/L (46-116); Anion Gap 14 (5-15); Aspartate Aminotransferase 168 U/L (13-40); BUN/Creatinine Ratio 26.4 (10.0-20.0); Blood Urea Nitrogen 55 mg/dL (9-23); Calcium 8.5 mg/dL (8.5-10.1); Carbon Dioxide 22 mmol/L (20-30); Chloride 104 mmol/L (98-107); Glucose 128 mg/dL (74-106); Potassium 3.5 mmol/L (3.5-5.1); Sodium 140 mmol/L (136-145)
[2023-10-10 07:29] LABS: Bilirubin, Total 2.6 mg/dL (0.2-1.0); Total Protein 4.9 g/dL (5.7-8.2)
[2023-10-10] MEDS: CALCIUM W/VIT D (600MG/400IU) TAB PO SCH ×2 (08:00→14:34)
[2023-10-10] MEDS: LOSARTAN POTASSIUM 25 MG TAB PO SCH (08:03)
[2023-10-10] MEDS: PANTOPRAZOLE 40 MG/10 ML VIAL INJ IV SCH ×2 (08:53→21:24)
[2023-10-10] MEDS: DOXYCYCLINE 100MG/250ML 250 ML IV SCH (08:57)
[2023-10-10] MEDS: CEFEPIME 2GM/50ML NS 50 ML IV SCH ×2 (09:00→21:24)
[2023-10-10 09:32] LABS: Band Neutrophils % (manual) 20; Blast Cells 1; Lymphocytes % (manual) 1 (10.0-50.0); Monocytes % (manual) 5 (0-12)
[2023-10-10 09:35] LABS: Platelet Estimate Decreased
[2023-10-10 10:03] LABS: Base Excess -6.4 mmol/L (-2.0-2.0)
[2023-10-10 10:28] LABS: Hemoglobin 9.8 g/dL (12.2-16.2)
[2023-10-10 10:32] LABS: Hematocrit 28.5 % (36.0-46.0); Mean Corpuscular Hemoglobin 30.7 pg (28.0-32.0); Mean Corpuscular Hgb Conc. 34.3 g/dL (32.0-36.0); Mean Corpuscular Volume 89.5 fL (80.0-100.0); Red Blood Cells 3.19 10^6/uL (4.0-5.20); Red Cell Distribution Width 16.6 % (11.8-14.3); White Blood Cell 15.7 10^3/uL (4.4-10.8)
[2023-10-10] MEDS: HALOPERIDOL LACTATE 5 MG/ML INJ VIAL IM PRN ×2 (10:38→18:44)
[2023-10-10 10:45] LABS: Basophils % (manual) 0 (0.0-2.0); Eosinophils % (manual) 0 (0-7); Promyelocytes % 0; Reactive Lymphocytes 0
[2023-10-10] MEDS ORDERED: LORazepam 2MG/ML-1ML VIAL IV PRN (10:45)
[2023-10-10 11:39] LABS: Band Neutrophils % (manual) 18; Blast Cells 2; Lymphocytes % (manual) 4 (10.0-50.0); Metamyelocytes % 2; Monocytes % (manual) 4 (0-12); Myelocytes % 2
[2023-10-10 11:44] LABS: Platelet Estimate Decrea
[2023-10-10] MEDS ORDERED: LIDOCAINE 1% (LOCAL ANESTH.) PF 5ml SDV ID ONE (12:30)
[2023-10-10] MEDS ORDERED: ACETAMINOPHEN IV 1000 MG/100ML (10MG/ML) IV PRN (14:30)
[2023-10-10 16:40] LABS: Base Excess -6.6 mmol/L (-2.0-2.0)
[2023-10-10 18:01] LABS: Protein, Urine 249.8 mg/dL (0.0-11.9)
[2023-10-10 18:04] LABS: Creatinine, Urine 196.71 mg/dL (30.0-125.0); Urine Protein/Creatinine Ratio 1.27
[2023-10-10 18:05] LABS: Hematocrit 25.3 % (36.0-46.0); Hemoglobin 8.6 g/dL (12.2-16.2)
[2023-10-10] MEDS: NOREPINEPHRINE 8 MG/250ML KIT 250 ML IV SCH (21:15)
[2023-10-10] MEDS: SODIUM CHLOR 0.9% PF (SALINE LOCK) 10ML VIAL/SYR IV SCH (21:24)
[2023-10-10] MEDS: CLINDAMYCIN 600MG IV 50 ML IV SCH (21:39)
[2023-10-10] MEDS: ATORVASTATIN 20 MG TAB PO SCH (21:54)
[2023-10-11] VITALS (65 sets, daily range): BP systolic 63–117; BP diastolic 19–67; PULSE 104–119; RESP 0–44; TEMP 98.7–100.2; O2SAT 79–100
[2023-10-11] MEDS: IPRATROPIUM BROM 0.5 MG/2.5ML INH SOL NEB SCH ×3 (02:17→11:49)
[2023-10-11] MEDS: LEVALBUTEROL HCL 1.25 MG/3 ML NEB NEB SCH ×3 (02:17→11:49)
[2023-10-11] MEDS: D5W/SOD CHL 0.45% 1,000 ML IV SCH (03:03)
[2023-10-11] MEDS: NOREPINEPHRINE 8 MG/250ML KIT 250 ML IV SCH (03:03)
[2023-10-11] MEDS: HEPARIN SODIUM (PORCINE) 5000 UNITS/ML 1ML VIAL SC SCH ×2 (04:30→07:42)
[2023-10-11] MEDS ORDERED: DOBUTamine 1000MCG/ML 0 ML IV ONE (04:43)
[2023-10-11] MEDS ORDERED: VASOPRESSIN 20 UNITS in SODIUM CHL 0.9% 99 ML IV SCH (04:45)
[2023-10-11] MEDS ORDERED: DOBUTamine 1000MCG/ML 250 ML IV SCH (04:45)
[2023-10-11 04:58] LABS: Hemoglobin 8.8 g/dL (12.2-16.2)
[2023-10-11 05:00] LABS: Mean Corpuscular Hemoglobin 30.1 pg (28.0-32.0); Mean Corpuscular Volume 88.4 fL (80.0-100.0); Red Blood Cells 2.94 10^6/uL (4.0-5.20); Red Cell Distribution Width 16.7 % (11.8-14.3)
[2023-10-11 05:18] LABS: Basophils % (manual) 0 (0.0-2.0); Blast Cells 0; Eosinophils % (manual) 0 (0-7); Promyelocytes % 0; Reactive Lymphocytes 0
[2023-10-11] MEDS: BACLOFEN 10 MG TAB PO SCH ×2 (06:00→07:19)
[2023-10-11] MEDS ORDERED: PHENYLEPHRINE IV 250 ML IV SCH (06:00)
[2023-10-11 06:20] LABS: Alanine Aminotransferase 72 U/L (7-40); Alkaline Phosphatase 143 U/L (46-116); Anion Gap 15 (5-15); BUN/Creatinine Ratio 23.9 (10.0-20.0); Calcium 8.1 mg/dL (8.7-10.4); Carbon Dioxide 18 mmol/L (20-30); Chloride 106 mmol/L (98-107); Glucose 112 mg/dL (74-106); Magnesium 2.5 mg/dL (1.6-2.6); Potassium 4.1 mmol/L (3.5-5.1); Sodium 139 mmol/L (136-145)
[2023-10-11 06:21] LABS: Albumin 2.9 g/dL (3.2-4.8); Aspartate Aminotransferase 300 U/L (13-40); Bilirubin, Total 3.6 mg/dL (0.2-1.0); Total Protein 5.2 g/dL (5.7-8.2)
[2023-10-11] MEDS: CLINDAMYCIN 600MG IV 50 ML IV SCH (06:39)
[2023-10-11 06:55] LABS: Blood Urea Nitrogen 82 mg/dL (9-23)
[2023-10-11 07:06] LABS: Lactic Acid w/Reflex 4.9 mmol/L (0.4-2.0)
[2023-10-11] MEDS: SODIUM CHLOR 0.9% PF (SALINE LOCK) 10ML VIAL/SYR IV SCH (07:19)
[2023-10-11] MEDS: LOSARTAN POTASSIUM 25 MG TAB PO SCH (07:19)
[2023-10-11] MEDS: CALCIUM W/VIT D (600MG/400IU) TAB PO SCH ×2 (07:19→11:27)
[2023-10-11] MEDS: PANTOPRAZOLE 40 MG/10 ML VIAL INJ IV SCH (07:49)
[2023-10-11] MEDS: CEFEPIME 2GM/50ML NS 50 ML IV SCH (07:49)
[2023-10-11 07:53] LABS: Base Excess -12.9 mmol/L (-2.0-2.0)
[2023-10-11] MEDS ORDERED: PHENYLEPHRINE INJ 80 MG in SODIUM CHL 0.9% 242 ML IV SCH (08:00)
[2023-10-11] MEDS ORDERED: NOREPINEPHRINE BITARTRATE 32 MG in SODIUM CHL 0.9% 218 ML IV SCH (08:00)
[2023-10-11 08:03] LABS: Band Neutrophils % (manual) 39; Lymphocytes % (manual) 3 (10.0-50.0); Metamyelocytes % 1; Monocytes % (manual) 8 (0-12); Myelocytes % 2
[2023-10-11 08:04] LABS: Giant Platelets Few; Platelet Estimate Decreased
[2023-10-11] MEDS ORDERED: SODIUM BICARBONATE 8.4 % INJ 50ML VIAL IV ONE (08:15)
[2023-10-11 09:06] LABS: Lipase 54 U/L (12-53)
[2023-10-11 09:07] LABS: Amylase 94 U/L (30-118)
[2023-10-11] MEDS ORDERED: MICAFUNGIN SODIUM 100 MG in SODIUM CHL 0.9% 100 ML IV SCH (10:00)
[2023-10-11] MEDS: MORPHINE SULFATE INJ 2 MG/ml SYRG IV PRN (12:33)
== END 2023-10-11 17:45 | DRG 871 ==
LOC: EDBD 06:41 → ER 06:41 → TELE 09:06 → UNDOADMIN 09:06 → TELE-CENTR 09:16 → ER 11:41 → ICU CENTRL 10-09 20:14
PROVIDERS: ADMIT Nurse Practitioner Family; ATTEND Family Medicine
PROC: 30233N1 Transfusion of Nonautologous Red Blood Cells into Peripheral Vein, Percutaneous Approach (ICD-10-PCS; 2023-10-09)
PROC: 02HV33Z Insertion of Infusion Device into Superior Vena Cava, Percutaneous Approach (ICD-10-PCS; principal; 2023-10-10)
PROC: B548ZZA Ultrasonography of Superior Vena Cava, Guidance (ICD-10-PCS; 2023-10-10)
PROC: 5A09357 Assistance with Respiratory Ventilation, Less than 24 Consecutive Hours, Continuous Positive Airway Pressure (ICD-10-PCS; 2023-10-10)
DX: A41.9 Sepsis, unspecified organism (principal); J18.9 Pneumonia, unspecified organism; J96.01 Acute respiratory failure with hypoxia; R65.21 Severe sepsis with septic shock; I47.10 Supraventricular tachycardia, unspecified; J44.0 Chronic obstructive pulmonary disease with (acute) lower respiratory infection; J44.1 Chronic obstructive pulmonary disease with (acute) exacerbation; J98.11 Atelectasis; N17.9 Acute kidney failure, unspecified; I13.0 Hypertensive heart and chronic kidney disease with heart failure and stage 1 through stage 4 chronic kidney disease, or unspecified chronic kidney disease; E87.20 Acidosis, unspecified; C85.90 Non-Hodgkin lymphoma, unspecified, unspecified site; K21.9 Gastro-esophageal reflux disease without esophagitis; D64.9 Anemia, unspecified; D86.9 Sarcoidosis, unspecified; E83.42 Hypomagnesemia; E86.0 Dehydration; F41.9 Anxiety disorder, unspecified; Z66 Do not resuscitate; N18.9 Chronic kidney disease, unspecified; I50.9 Heart failure, unspecified; K76.0 Fatty (change of) liver, not elsewhere classified; R07.89 Other chest pain; R16.1 Splenomegaly, not elsewhere classified; E66.9 Obesity, unspecified; Z86.711 Personal history of pulmonary embolism; Z86.73 Personal history of transient ischemic attack (TIA), and cerebral infarction without residual deficits; Z80.3 Family history of malignant neoplasm of breast; Z80.0 Family history of malignant neoplasm of digestive organs; Z90.49 Acquired absence of other specified parts of digestive tract; Z90.710 Acquired absence of both cervix and uterus; Z79.899 Other long term (current) drug therapy; Z68.33 Body mass index [BMI] 33.0-33.9, adult
CPT/HCPCS: 36415; 36569; 36600; 70450; 71045; 74176; 76705; 76775; 80048; 80053; 80061; 80074; 81001; 82140; 82150; 82270; 82306; 82570; 82805; 82962; 83036; 83605; 83690; 83735; 83880; 83970; 84100; 84156; 84300; 84484; 85007; 85014; 85018; 85025; 85027; 85610; 86704; 86706; 86708; 86803; 86850; 86900; 86901; 86920; 87040; 87045; 87081; 87086; 87340; 87426; 87427; 87493; 87804; 93005; 93306; 94640; 94660; 96361; 96374; 96375; 99291; C9113; G0378; J0131; J0153; J0692; J2248; J3490